=== PATIENT | male | born 1940 | race Caucasian/White ===

== ENCOUNTER 2017-04-27 09:05 | Inpatient (IN) | payer MEDICARE, BC ==
--- NOTE | 2017-04-27 17:07 | PCM.HP ---
H&P History of Present Illness - General Date of Service: 04/27/17 Admit Problem/Dx: Admission Diagnosis/Problem Admission Diagnosis/Problem Rehabilitation therapy Source of Information: Patient, Old Records History Limitations: Reports: No Limitations - History of Present Illness Initial Comments - Free Text/Narative: This is a 76-year-old male patient is transferred down from [facility] after having pleural effusions secondary to severe pulmonary hypertension. He was initially admitted late March discharge 04/06 and then was readmitted for shortness of breath. He went underwent thoracentesis. So now he is having problems with chronic pleural effusion and he has a permanent chest tube in which are draining periodically. Today he has no concerns. He has no shortness of breath. Occasional cough, no fevers, chills or leg swelling. - Related Data Allergies/Adverse Reactions: Allergies Allergy/AdvReac Type Severity Reaction Status Date / Time No Known Allergies Allergy Verified 04/27/17 16:11 Home Medications: Home Meds Carvedilol [Coreg] 3.125 mg PO BIDMEALS 04/27/17 [History] Digoxin [Digox] 62.5 mcg PO Q36H 04/27/17 [History] Ferrous Fumarate 324 mg PO BID 04/27/17 [History] Furosemide 80 mg PO BID 04/27/17 [History] Macitentan [Opsumit] 10 mg PO DAILY 04/27/17 [History] Sildenafil [Revatio] 20 mg PO TID 04/27/17 [History] Simvastatin [Zocor] 40 mg PO BEDTIME 04/27/17 [History] Warfarin [Coumadin] 3 mg PO DAILY 04/27/17 [History] glipiZIDE [Glipizide Xl] 10 mg PO DAILY 04/27/17 [History] metFORMIN [Glucophage] 1,000 mg PO BIDMEALS 04/27/17 [History] Past Medical History HEENT History: Reports: Cataract Cardiovascular History: Reports: Afib, Heart Failure, High Cholesterol, Hypertension Respiratory History: Reports: Other (See Below) Other Respiratory History: pulmonary hypertension Other Genitourinary History: CRF Endocrine/Metabolic History: Reports: Diabetes, Type II - Infectious Disease History Infectious Disease History: Reports: Chicken Pox - Past Surgical History HEENT Surgical History: Reports: Eye Surgery Respiratory Surgical History: Reports: Pleurodesis, Thoracentesis Endocrine Surgical History: Reports: None Social & Family History - Family History Family Medical History: Noncontributory - Tobacco Use Smoking Status *Q: Former Smoker Years of Tobacco use: 10 Used Tobacco, but Quit: Yes Month Tobacco Last Used: April Second Hand Smoke Exposure: No - Caffeine Use Caffeine Use: Reports: None - Recreational Drug Use Recreational Drug Use: No H&P Review of Systems - Review of Systems: Review Of Systems: See Below General: Reports: No Symptoms HEENT: Reports: No Symptoms Pulmonary: Reports: No Symptoms Cardiovascular: Reports: No Symptoms Gastrointestinal: Reports: No Symptoms Genitourinary: Reports: No Symptoms Musculoskeletal: Reports: No Symptoms Skin: Reports: No Symptoms Psychiatric: Reports: No Symptoms Neurological: Reports: No Symptoms Hematologic/Lymphatic: Reports: Easy Bruising Immunologic: Reports: No Symptoms Exam - Exam Exam: See Below - Vital Signs Vital Signs: Last Vital Signs Temp 97.9 F 04/27/17 12:48 Pulse 83 04/27/17 12:48 Resp 16 04/27/17 12:48 BP 117/59 L 04/27/17 12:48 Pulse Ox 95 04/27/17 13:47 Weight: 236 lb - Exam General: Alert, Oriented, Cooperative HEENT: PERRLA, Conjunctiva Clear, Hearing Intact, Mucosa Moist & [place], Posterior Pharynx Clear, TMs Clear Neck: Supple, Trachea Midline Lungs: Clear to Auscultation, Normal Respiratory Effort. No: Crackles, Rales, Rhonchi Cardiovascular: Regular Rhythm. No: Systolic Murmur, Diastolic Murmur GI/Abdominal Exam: Normal Bowel Sounds, Soft, Non-Tender, No Organomegaly, No Distention Back Exam: Normal Inspection, Full Range of Motion Extremities: Normal Inspection, Non-Tender, No Pedal Edema Skin: Warm, Dry, Intact Neurological: Normal Speech, Normal Tone Neuro Extensive - Mental Status: Alert, Oriented x3, Normal Mood/Affect, Normal Cognition, Memory Intact Psychiatric: Alert, Normal Affect, Normal Mood *Q Meaningful Use (ADM) - VTE *Q VTE Criteria *Q: - Stroke *Q Stroke Criteria *Q: - AMI *Q AMI Criteria *Q: - Problem List (1) Pleural effusion SNOMED Code(s): 44993865 ICD Code: J90 - PLEURAL EFFUSION, NOT ELSEWHERE CLASSIFIED Status: Acute Current Visit: Yes (2) COPD (chronic obstructive pulmonary disease) SNOMED Code(s): 78735924 ICD Code: J44.9 - CHRONIC OBSTRUCTIVE PULMONARY DISEASE, UNSPECIFIED Status : Acute Current Visit: Yes (3) Chronic atrial fibrillation SNOMED Code(s): 706014777 ICD Code: I48.2 - CHRONIC ATRIAL FIBRILLATION Status: Acute Current Visit : Yes (4) Pulmonary hypertension, moderate to severe SNOMED Code(s): 73086744 ICD Code: I27.20 - PULMONARY HYPERTENSION, UNSPECIFIED Status: Acute Current Visit: Yes (5) Diabetes SNOMED Code(s): 41866509 ICD Code: E11.9 - TYPE 2 DIABETES MELLITUS WITHOUT COMPLICATIONS Status: Acute Current Visit: Yes (6) Chronic kidney disease, stage III (moderate) SNOMED Code(s): 248077434 ICD Code: N18.3 - CHRONIC KIDNEY DISEASE, STAGE 3 (MODERATE) Status: Acute Current Visit: Yes (7) Hypertension SNOMED Code(s): 99754902 ICD Code: I10 - ESSENTIAL (PRIMARY) HYPERTENSION Status: Acute Current Visit: Yes (8) Sleep apnea SNOMED Code(s): 50473517 ICD Code: G47.30 - SLEEP APNEA, UNSPECIFIED Status: Acute Current Visit: Yes (9) Chronic congestive heart failure with left ventricular diastolic dysfunction SNOMED Code(s): 27271438 ICD Code: I50.32 - CHRONIC DIASTOLIC (CONGESTIVE) HEART FAILURE Status: Acute Current Visit: Yes Problem List Initiated/Reviewed/Updated: Yes Orders Last 24hrs: Active Orders 24 hr Category Date Time Status Admission Status [Patient Status] [ADT] Routine ADT 04/27/17 10:30 Active Activity as Tolerated [RC] .Routine Care 04/27/17 13:47 Active Oxygen Therapy [RC] .PRN Care 04/27/17 13:47 Active OT Evaluation and Treatment [CONS] Routine Cons 04/27/17 13:47 Active PT Evaluation and Treatment [CONS] Routine Cons 04/27/17 13:47 Active No Added Salt [DIET] Diet 04/27/17 Dinner Active INR,PT,PROTHROMBIN TIME [COAG] Routine Lab 04/30/17 06:00 Ordered Patient May [OM.PC] Click to Edit Oth 04/27/17 16:08 Ordered Wound Vac Management [OM.PC] Routine Oth 04/27/17 13:47 Ordered Resuscitation Status Routine Resus Stat 04/27/17 13:47 Ordered Assessment/Plan Comment:: Patient was admitted and continued on anticoagulation. They will drain is chest tubes periodically. Do teaching. Physical therapy, and occupational therapy Continue his regular medicines. Diabetic diet. Pharmacy to manage INR.
[2017-04-27] MEDS ORDERED: Warfarin 3 MG Tab PO SCH (17:30)
[2017-04-27] MEDS: metFORMIN 1,000 MG Tab PO SCH (17:59)
[2017-04-27] MEDS: Carvedilol 3.125 MG Tab PO SCH (17:59)
[2017-04-27] MEDS: Furosemide 80 MG Tab PO SCH (17:59)
[2017-04-27] MEDS: Ferrous Sulfate 325 MG Tab PO SCH (21:44)
[2017-04-27] MEDS: Sildenafil 20 MG Tab PO SCH (21:45)
[2017-04-27] MEDS: Simvastatin 40 MG Tab PO SCH (21:45)
[2017-04-28] MEDS: Sildenafil 20 MG Tab PO SCH ×3 (08:10→21:39)
[2017-04-28] MEDS: Ferrous Sulfate 325 MG Tab PO SCH ×2 (08:10→21:38)
[2017-04-28] MEDS: Furosemide 80 MG Tab PO SCH ×2 (08:10→16:39)
[2017-04-28] MEDS: metFORMIN 1,000 MG Tab PO SCH ×2 (08:14→17:21)
[2017-04-28] MEDS: glipiZIDE 10 MG Tab.ER PO SCH (08:15)
[2017-04-28] MEDS: Carvedilol 3.125 MG Tab PO SCH ×2 (08:15→17:20)
[2017-04-28] MEDS: MACITENTAN 10 MG PO SCH (08:16)
[2017-04-28] MEDS ORDERED: Warfarin Sliding Scale PO SCH (09:00)
[2017-04-28] MEDS ORDERED: Warfarin 5 MG Tab PO SCH (16:00)
[2017-04-28] MEDS: Digoxin 125 MCG Tab PO SCH (21:38)
[2017-04-28] MEDS: Simvastatin 40 MG Tab PO SCH (21:39)
[2017-04-29] MEDS: Sildenafil 20 MG Tab PO SCH ×3 (08:59→20:16)
[2017-04-29] MEDS: MACITENTAN 10 MG PO SCH (08:59)
[2017-04-29] MEDS: glipiZIDE 10 MG Tab.ER PO SCH (09:00)
[2017-04-29] MEDS: metFORMIN 1,000 MG Tab PO SCH ×2 (09:00→17:22)
[2017-04-29] MEDS: Carvedilol 3.125 MG Tab PO SCH ×2 (09:00→17:22)
[2017-04-29] MEDS: Ferrous Sulfate 325 MG Tab PO SCH ×2 (09:00→20:16)
[2017-04-29] MEDS: Furosemide 80 MG Tab PO SCH ×2 (09:01→14:12)
[2017-04-29] MEDS ORDERED: Warfarin 3 MG Tab PO SCH (16:00)
[2017-04-29] MEDS: Sulfamethoxazole/Trimethoprim 800-160 MG Tab PO SCH (20:16)
[2017-04-29] MEDS: Simvastatin 40 MG Tab PO SCH (20:16)
[2017-04-30] MEDS: metFORMIN 1,000 MG Tab PO SCH ×2 (09:02→18:26)
[2017-04-30] MEDS: Carvedilol 3.125 MG Tab PO SCH ×2 (09:02→18:27)
[2017-04-30] MEDS: Ferrous Sulfate 325 MG Tab PO SCH ×2 (09:03→20:06)
[2017-04-30] MEDS: glipiZIDE 10 MG Tab.ER PO SCH (09:03)
[2017-04-30] MEDS: Furosemide 80 MG Tab PO SCH ×2 (09:03→15:05)
[2017-04-30] MEDS: Digoxin 125 MCG Tab PO SCH (09:03)
[2017-04-30] MEDS: MACITENTAN 10 MG PO SCH (09:04)
[2017-04-30] MEDS: Sildenafil 20 MG Tab PO SCH ×3 (09:05→20:07)
[2017-04-30] MEDS: Sulfamethoxazole/Trimethoprim 800-160 MG Tab PO SCH ×2 (09:09→20:07)
[2017-04-30] MEDS: Warfarin 3 MG Tab PO SCH (15:38)
[2017-04-30] MEDS: Simvastatin 40 MG Tab PO SCH (20:06)
[2017-05-01] MEDS: Carvedilol 3.125 MG Tab PO SCH ×2 (08:32→18:39)
[2017-05-01] MEDS: metFORMIN 1,000 MG Tab PO SCH ×2 (08:33→18:38)
[2017-05-01] MEDS: glipiZIDE 10 MG Tab.ER PO SCH (08:33)
[2017-05-01] MEDS: Furosemide 80 MG Tab PO SCH ×2 (08:33→14:08)
[2017-05-01] MEDS: MACITENTAN 10 MG PO SCH (08:35)
[2017-05-01] MEDS: Sildenafil 20 MG Tab PO SCH ×3 (08:36→20:46)
[2017-05-01] MEDS: Ciprofloxacin 250 MG Tab PO SCH ×2 (08:40→20:00)
[2017-05-01] MEDS: Ferrous Sulfate 325 MG Tab PO SCH ×2 (10:25→20:44)
[2017-05-01] MEDS: Warfarin 3 MG Tab PO SCH (16:25)
[2017-05-01] MEDS: Simvastatin 40 MG Tab PO SCH (20:44)
[2017-05-01] MEDS: Digoxin 125 MCG Tab PO SCH (20:46)
[2017-05-02] MEDS: Sildenafil 20 MG Tab PO SCH ×3 (07:50→21:18)
[2017-05-02] MEDS: Ferrous Sulfate 325 MG Tab PO SCH ×2 (07:50→21:18)
[2017-05-02] MEDS: glipiZIDE 10 MG Tab.ER PO SCH (07:50)
[2017-05-02] MEDS: Ciprofloxacin 250 MG Tab PO SCH ×2 (07:50→21:18)
[2017-05-02] MEDS: Carvedilol 3.125 MG Tab PO SCH ×2 (07:50→18:23)
[2017-05-02] MEDS: MACITENTAN 10 MG PO SCH (07:50)
[2017-05-02] MEDS: metFORMIN 1,000 MG Tab PO SCH ×2 (07:51→18:23)
[2017-05-02] MEDS: Furosemide 80 MG Tab PO SCH ×2 (07:51→13:50)
[2017-05-02] MEDS: Warfarin 3 MG Tab PO SCH (16:03)
[2017-05-02] MEDS: Simvastatin 40 MG Tab PO SCH (21:19)
[2017-05-03] MEDS: Ciprofloxacin 250 MG Tab PO SCH ×2 (08:42→19:46)
[2017-05-03] MEDS: Carvedilol 3.125 MG Tab PO SCH ×2 (08:43→17:36)
[2017-05-03] MEDS: Furosemide 80 MG Tab PO SCH (08:43)
[2017-05-03] MEDS: metFORMIN 1,000 MG Tab PO SCH ×2 (08:43→17:39)
[2017-05-03] MEDS: Ferrous Sulfate 325 MG Tab PO SCH ×2 (09:40→20:15)
[2017-05-03] MEDS: Sildenafil 20 MG Tab PO SCH ×3 (09:40→20:15)
[2017-05-03] MEDS: glipiZIDE 10 MG Tab.ER PO SCH (09:40)
[2017-05-03] MEDS: MACITENTAN 10 MG PO SCH (09:40)
--- NOTE | 2017-05-03 09:42 | PCM.PN ---
- General Info Date of Service: 05/03/17 Admission Dx/Problem (Free Text): Patient without complaints. Breathing about the same. The leg swelling. 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 New orders were placed. He says he is working with PT. - Patient Data Vitals - Most Recent: Last Vital Signs Temp 97.5 F 05/03/17 06:21 Pulse 84 05/03/17 06:21 Resp 20 05/03/17 06:21 BP 111/64 05/03/17 06:21 Pulse Ox 94 L 05/03/17 06:21 Weight - Most Recent: 236 lb Lab Results Last 24 Hours: Laboratory Results - last 24 hr 05/03/17 Range/Units 06:40 PT 27.9 H (8.7-11.1) INR 2.70 H (0.89-1.13) Med Orders - Current: Current Medications Carvedilol (Coreg) 3.125 mg PO BIDMEALS [facility] Last Admin: 05/03/17 08:43 Dose: 3.125 mg Ciprofloxacin (Ciprofloxacin Hcl) 250 mg PO 0800,2000 [facility] Last Admin: 05/03/17 08:42 Dose: 250 mg Ferrous Sulfate (Ferrous Sulfate) 325 mg PO BID [facility] Last Admin: 05/02/17 21:18 Dose: 325 mg Furosemide (Lasix) 80 mg PO DAILY@0800 [facility] Last Admin: 05/03/17 08:43 Dose: 80 mg Furosemide (Lasix) 40 mg PO DAILY@1400 [facility] Glipizide (Glucotrol Xl) 10 mg PO DAILY [facility] Last Admin: 05/02/17 07:50 Dose: 10 mg Metformin HCl (Glucophage) 1,000 mg PO BIDMEALS [facility] Last Admin: 05/03/17 08:43 Dose: 1,000 mg Macitentan [Opsumit] (10 Mg *Ptom) 10 mg PO DAILY [facility] Last Admin: 05/02/17 07:50 Dose: 10 mg Sildenafil Citrate (Revatio) 20 mg PO TID [facility] Last Admin: 05/02/17 21:18 Dose: 20 mg Simvastatin (Zocor) 40 mg PO BEDTIME [facility] Last Admin: 05/02/17 21:19 Dose: 40 mg Warfarin Sodium (Coumadin Sliding Scale) 1 each PO DAILY [facility] Warfarin Sodium (Coumadin) 3 mg PO 1600 [facility] Last Admin: 05/02/17 16:03 Dose: 3 mg Discontinued Medications Digoxin (Lanoxin) 62.5 mcg PO Q36H [facility] Last Admin: 05/01/17 20:46 Dose: 62.5 mcg Furosemide (Lasix) 80 mg PO BIDDIURETIC [facility] Last Admin: 05/02/17 13:50 Dose: 80 mg Trimethoprim/Sulfamethoxazole (Septra Ds) 1 tab PO BID [facility] Last Admin: 04/30/17 20:07 Dose: 1 tab Warfarin Sodium (Coumadin) 3 mg PO 1600 [facility] Stop: 04/27/17 20:30 Last Admin: 04/27/17 17:58 Dose: 3 mg Warfarin Sodium (Coumadin) 5 mg PO 1600 [facility] Stop: 04/28/17 20:30 Last Admin: 04/28/17 16:38 Dose: 5 mg Warfarin Sodium (Coumadin) 3 mg PO 1600 [facility] Stop: 04/29/17 16:01 Last Admin: 04/29/17 16:38 Dose: Not Given Warfarin Sodium (Coumadin) 3 mg PO 1600 [facility] Stop: 04/29/17 16:31 Last Admin: 04/29/17 16:36 Dose: 3 mg - Exam General: Alert, Oriented, Cooperative Lungs: Normal Respiratory Effort, Decreased Breath Sounds Cardiovascular: Regular Rate, Regular Rhythm, No Murmurs Extremities: Pedal Edema - Problem List & Annotations (1) Pleural effusion SNOMED Code(s): 42637524 Code(s): J90 - PLEURAL EFFUSION, NOT ELSEWHERE CLASSIFIED Status: Acute Current Visit: Yes (2) COPD (chronic obstructive pulmonary disease) SNOMED Code(s): 48421776 Code(s): J44.9 - CHRONIC OBSTRUCTIVE PULMONARY DISEASE, UNSPECIFIED Status : Acute Current Visit: Yes (3) Chronic atrial fibrillation SNOMED Code(s): 071075398 Code(s): I48.2 - CHRONIC ATRIAL FIBRILLATION Status: Acute Current Visit : Yes (4) Pulmonary hypertension, moderate to severe SNOMED Code(s): 36535590 Code(s): I27.20 - PULMONARY HYPERTENSION, UNSPECIFIED Status: Acute Current Visit: Yes (5) Diabetes SNOMED Code(s): 02806797 Code(s): E11.9 - TYPE 2 DIABETES MELLITUS WITHOUT COMPLICATIONS Status: Acute Current Visit: Yes (6) Chronic kidney disease, stage III (moderate) SNOMED Code(s): 935906674 Code(s): N18.3 - CHRONIC KIDNEY DISEASE, STAGE 3 (MODERATE) Status: Acute Current Visit: Yes (7) Hypertension SNOMED Code(s): 36560275 Code(s): I10 - ESSENTIAL (PRIMARY) HYPERTENSION Status: Acute Current Visit: Yes (8) Sleep apnea SNOMED Code(s): 74468278 Code(s): G47.30 - SLEEP APNEA, UNSPECIFIED Status: Acute Current Visit: Yes (9) Chronic congestive heart failure with left ventricular diastolic dysfunction SNOMED Code(s): 94391114 Code(s): I50.32 - CHRONIC DIASTOLIC (CONGESTIVE) HEART FAILURE Status: Acute Current Visit: Yes - Problem List Review Problem List Initiated/Reviewed/Updated: Yes - My Orders Last 24 Hours: My Active Orders 05/03/17 08:00 Furosemide [Lasix] 80 mg PO DAILY@0800 05/03/17 14:00 Furosemide [Lasix] 40 mg PO DAILY@1400 05/04/17 09:11 INR,PT,PROTHROMBIN TIME [COAG] DAILY - Plan Plan:: Continue current care. Home next week on hospice.
[2017-05-03] MEDS: Furosemide 40 MG Tab PO SCH (14:49)
[2017-05-03] MEDS ORDERED: 50% Dextrose in Water 50 ML Syringe IVPUSH ONE (15:55)
[2017-05-03] MEDS ORDERED: Sodium Chloride 0.9% 10 ML Syringe FLUSH PRN (15:55)
[2017-05-03] MEDS ORDERED: Dextrose 5%-0.45% NaCl 1,000 ML IV SCH ×2 (16:00→16:15)
[2017-05-03] MEDS: Warfarin 3 MG Tab PO SCH (16:24)
[2017-05-03] MEDS: Simvastatin 40 MG Tab PO SCH (20:15)
[2017-05-03] MEDS ORDERED: Glucagon,Human Recombinant 1 MG Vial IM ONE (21:26)
[2017-05-04] MEDS: Ciprofloxacin 250 MG Tab PO SCH ×2 (08:37→20:32)
[2017-05-04] MEDS: Carvedilol 3.125 MG Tab PO SCH ×2 (08:37→17:40)
[2017-05-04] MEDS: glipiZIDE 10 MG Tab.ER PO SCH (08:38)
[2017-05-04] MEDS: metFORMIN 1,000 MG Tab PO SCH (08:38)
[2017-05-04] MEDS: MACITENTAN 10 MG PO SCH (08:38)
[2017-05-04] MEDS: Furosemide 80 MG Tab PO SCH (08:39)
[2017-05-04] MEDS: Sildenafil 20 MG Tab PO SCH ×3 (08:39→20:32)
[2017-05-04] MEDS: Ferrous Sulfate 325 MG Tab PO SCH ×2 (09:20→20:32)
[2017-05-04] MEDS: Dextrose 5%-0.45% NaCl 1,000 ML IV SCH (10:58)
[2017-05-04] MEDS ORDERED: Warfarin 3 MG Tab PO SCH (16:00)
[2017-05-04] MEDS: Furosemide 40 MG Tab PO SCH (16:35)
[2017-05-04] MEDS: Simvastatin 40 MG Tab PO SCH (20:32)
[2017-05-05] MEDS: Carvedilol 3.125 MG Tab PO SCH ×2 (08:22→18:55)
[2017-05-05] MEDS: Ciprofloxacin 250 MG Tab PO SCH ×2 (08:22→20:14)
[2017-05-05] MEDS: Sildenafil 20 MG Tab PO SCH ×3 (08:23→21:58)
[2017-05-05] MEDS: Ferrous Sulfate 325 MG Tab PO SCH ×2 (08:23→21:58)
[2017-05-05] MEDS: MACITENTAN 10 MG PO SCH (08:23)
[2017-05-05] MEDS: Furosemide 80 MG Tab PO SCH (08:23)
[2017-05-05] MEDS: Dextrose 5%-0.45% NaCl 1,000 ML IV SCH (12:18)
[2017-05-05] MEDS: Furosemide 40 MG Tab PO SCH (14:10)
[2017-05-05] MEDS: Warfarin 3 MG Tab PO SCH (15:48)
[2017-05-05] MEDS: Simvastatin 40 MG Tab PO SCH (21:58)
[2017-05-06] MEDS: Furosemide 80 MG Tab PO SCH (08:25)
[2017-05-06] MEDS: Carvedilol 3.125 MG Tab PO SCH ×2 (08:25→17:29)
[2017-05-06] MEDS: Ciprofloxacin 250 MG Tab PO SCH ×2 (08:25→21:00)
[2017-05-06] MEDS: MACITENTAN 10 MG PO SCH (08:26)
[2017-05-06] MEDS: Ferrous Sulfate 325 MG Tab PO SCH ×2 (08:26→21:06)
[2017-05-06] MEDS: Sildenafil 20 MG Tab PO SCH ×3 (08:26→21:07)
[2017-05-06] MEDS: Furosemide 40 MG Tab PO SCH (13:35)
[2017-05-06] MEDS: Warfarin 3 MG Tab PO SCH (16:17)
[2017-05-06] MEDS: Simvastatin 40 MG Tab PO SCH (21:07)
[2017-05-07] MEDS: Sildenafil 20 MG Tab PO SCH ×3 (08:13→20:44)
[2017-05-07] MEDS: Carvedilol 3.125 MG Tab PO SCH ×2 (08:13→17:03)
[2017-05-07] MEDS: Ciprofloxacin 250 MG Tab PO SCH ×2 (08:13→19:55)
[2017-05-07] MEDS: Ferrous Sulfate 325 MG Tab PO SCH ×2 (08:13→20:44)
[2017-05-07] MEDS: Furosemide 80 MG Tab PO SCH (08:13)
[2017-05-07] MEDS: MACITENTAN 10 MG PO SCH (08:14)
[2017-05-07] MEDS: Furosemide 40 MG Tab PO SCH (14:22)
[2017-05-07] MEDS: Warfarin 3 MG Tab PO SCH (17:03)
[2017-05-07] MEDS: Simvastatin 40 MG Tab PO SCH (20:44)
[2017-05-08] MEDS: Ciprofloxacin 250 MG Tab PO SCH (09:06)
[2017-05-08] MEDS: Carvedilol 3.125 MG Tab PO SCH ×2 (09:06→18:15)
[2017-05-08] MEDS: Ferrous Sulfate 325 MG Tab PO SCH ×2 (09:07→20:18)
[2017-05-08] MEDS: Furosemide 80 MG Tab PO SCH (09:07)
[2017-05-08] MEDS: MACITENTAN 10 MG PO SCH (09:08)
[2017-05-08] MEDS: Sildenafil 20 MG Tab PO SCH ×3 (09:09→20:18)
[2017-05-08] MEDS: Furosemide 40 MG Tab PO SCH (13:57)
[2017-05-08] MEDS: Warfarin 3 MG Tab PO SCH (15:40)
[2017-05-08] MEDS: Simvastatin 40 MG Tab PO SCH (20:18)
[2017-05-09] MEDS: Carvedilol 3.125 MG Tab PO SCH ×2 (08:04→19:07)
[2017-05-09] MEDS: Furosemide 80 MG Tab PO SCH (08:04)
[2017-05-09] MEDS: Ferrous Sulfate 325 MG Tab PO SCH ×2 (08:04→21:05)
[2017-05-09] MEDS: MACITENTAN 10 MG PO SCH (08:04)
[2017-05-09] MEDS: Sildenafil 20 MG Tab PO SCH ×3 (08:05→21:05)
[2017-05-09] MEDS: Furosemide 40 MG Tab PO SCH (13:13)
[2017-05-09] MEDS ORDERED: Warfarin 3 MG Tab PO SCH (16:00)
[2017-05-09] MEDS: Simvastatin 40 MG Tab PO SCH (21:05)
[2017-05-10] MEDS: Furosemide 80 MG Tab PO SCH (08:00)
[2017-05-10] MEDS: MACITENTAN 10 MG PO SCH (08:00)
[2017-05-10] MEDS: Ferrous Sulfate 325 MG Tab PO SCH (08:00)
[2017-05-10] MEDS: Carvedilol 3.125 MG Tab PO SCH (08:00)
[2017-05-10] MEDS: Sildenafil 20 MG Tab PO SCH ×2 (08:01→14:34)
[2017-05-10] MEDS: Furosemide 40 MG Tab PO SCH (14:34)
[2017-05-10] MEDS ORDERED: Warfarin 3 MG Tab PO SCH (16:00)
--- NOTE | 2017-05-11 09:13 | DISCH ---
DISCHARGE DATE: 05/10/2017 REASON FOR ADMISSION: 1. Physical deconditioning. 2. Pleural effusion. 3. Chronic renal failure. 4. Type 2 diabetes. 5. Severe pulmonary hypertension. 6. Chronic obstructive pulmonary disease. 7. Atrial fibrillation and sleep apnea. 8. Congestive heart failure. CONSULTATIONS: None. BRIEF HISTORY: This is a 77-year-old male who was admitted from [facility] where he had been seen for pleural effusion, chronic, and this was treated with a chest tube. He was admitted for strengthening and rehab. During his hospital stay, he had episodes of hypoglycemia necessitating the discontinuation of insulin and glipizide and metformin. His Lasix was also decreased to 80 mg in the morning and 40 mg in the afternoon rather than 80 mg twice a day. Digoxin was discontinued altogether. He is ready to go home today on 05/10/2017 with the following medications: 1. Ferrous sulfate 325 mg b.i.d. 2. Furosemide 80 mg in the morning and 40 mg in the afternoon. 3. Macitentan 10 mg daily. 4. Sildenafil 20 mg t.i.d. 5. Zocor 40 mg at bedtime. 6. Coumadin 6 mg on and 3 mg the rest of the days. 7. Also continue with metformin 1000 mg b.i.d. Please note that digoxin and glipizide have been discontinued. FOLLOWUP: Will see PCP on Sunday and also have an INR drawn. The patient will go home with hospice care. /[id number] MIKI/ELIZABETH
== END 2017-05-10 14:10 | disposition hospice, home (50) | DRG 948 ==
LOC: FB.MS 12:32
PROVIDERS: ADMIT Family Medicine; ATTEND Family Medicine
DX: R53.1 Weakness (principal); J90 Pleural effusion, not elsewhere classified; I13.0 Hypertensive heart and chronic kidney disease with heart failure and stage 1 through stage 4 chronic kidney disease, or unspecified chronic kidney disease; Z66 Do not resuscitate; J44.9 Chronic obstructive pulmonary disease, unspecified; I27.20 Pulmonary hypertension, unspecified; Z87.891 Personal history of nicotine dependence; E11.22 Type 2 diabetes mellitus with diabetic chronic kidney disease; N18.3 Chronic kidney disease, stage 3 (moderate); Z79.84 Long term (current) use of oral hypoglycemic drugs; I48.2 Chronic atrial fibrillation; Z79.01 Long term (current) use of anticoagulants; E78.00 Pure hypercholesterolemia, unspecified; G47.30 Sleep apnea, unspecified; E11.649 Type 2 diabetes mellitus with hypoglycemia without coma
CPT/HCPCS: 36415; 80048; 81001; 82962; 85025; 85610; 87086; 87088; 87186; 97110-GO; 97110-GP; 97116-GP; 97161-GP; 97165-GO; 97530-GO-KX; 97530-GP; A9270-GY; J1610; J7050

== ENCOUNTER 2017-08-26 07:07 | Inpatient (IN) | payer BC, MEDICARE, OTHER ==
[2017-08-26] MEDS ORDERED: Morphine Oral Concentrate 20 MG/ML 30 ML Bottle PO PRN (09:17)
--- NOTE | 2017-08-26 10:37 | PCM.HP ---
H&P History of Present Illness - General Date of Service: 08/26/17 Admit Problem/Dx: Admission Diagnosis/Problem Admission Diagnosis/Problem CHF, Congestive heart failure Source of Information: Other (His hospice nurse) History Limitations: Reports: Altered Mental Status, Respiratory Distress - History of Present Illness Initial Comments - Free Text/Narative: Patient 77-year-old male with severe end-stage COPD, CHF atrial fibrillation having been on hospice now roughly 5 months. Has been staying at home with home hospice with his family providing cares 24 hours. He is decompensated to the point that he is now requiring 5.5 L of oxygen with sats in the mid 80s along with breathing. Mentation and functional decline. He is admitted under hospice respite care for support and observation Duration of Symptoms: Reports: Waxing/Waning denies any pain Pain Score (Numeric/FACES): 0 - Related Data Allergies/Adverse Reactions: Allergies Allergy/AdvReac Type Severity Reaction Status Date / Time No Known Allergies Allergy Verified 08/26/17 09:00 Home Medications: Home Meds Carvedilol [Coreg] 3.125 mg PO BIDMEALS 04/27/17 [History] Macitentan [Opsumit] 10 mg PO DAILY 04/27/17 [History] Sildenafil [Revatio] 20 mg PO TID 04/27/17 [History] Furosemide [Lasix] 40 mg PO DAILY@1400 #60 tablet 05/10/17 [Rx] Furosemide [Lasix] 80 mg PO DAILY@0800 #0 tablet 05/10/17 [Rx] Morphine [Morphine 20 MG/ML Soln] 5 mg PO .Q30MIN PRN 08/26/17 [History] Scopolamine [Transderm-Scop] 1 patch TD Q3D 08/26/17 [History] Warfarin [Coumadin] 1 mg PO DAILY 08/26/17 [History] glipiZIDE [Glipizide Xl] 10 mg PO DAILY 08/26/17 [History] Past Medical History HEENT History: Reports: Cataract Cardiovascular History: Reports: Afib, Heart Failure, High Cholesterol, Hypertension Respiratory History: Reports: Other (See Below) Other Respiratory History: pulmonary hypertension Genitourinary History: Reports: Urinary Incontinence Other Genitourinary History: CRF Endocrine/Metabolic History: Reports: Diabetes, Type II Dermatologic History: Reports: Other (See Below) Other Dermatologic History: weeping fluid to pt bilateral legs - Infectious Disease History Infectious Disease History: Reports: Chicken Pox - Past Surgical History HEENT Surgical History: Reports: Eye Surgery Cardiovascular Surgical History: Reports: None Respiratory Surgical History: Reports: Pleurodesis, Thoracentesis Male Surgical History: Reports: None Endocrine Surgical History: Reports: None Dermatological Surgical History: Reports: None Social & Family History - Family History Family Medical History: Noncontributory - Tobacco Use Smoking Status *Q: Former Smoker Years of Tobacco use: 10 Used Tobacco, but Quit: Yes Month Tobacco Last Used: 36 years ago Tobacco Use Comment: quit smoking 35 years ago Second Hand Smoke Exposure: No - Caffeine Use Caffeine Use: Reports: Coffee, Soda Other Caffeine Use: 2 cups a day; occasional drinker of Dr. Anthony - Recreational Drug Use Recreational Drug Use: No H&P Review of Systems - Review of Systems: Review Of Systems: ROS reveals no pertinent complaints other than HPI. Exam - Exam Exam: See Below - Vital Signs Vital Signs: Last Vital Signs Temp Pulse 74 08/26/17 07:29 Resp 24 H 08/26/17 07:29 BP 94/47 L 08/26/17 07:29 Pulse Ox 94 L 08/26/17 07:30 Weight: 114.169 kg - Exam Quality Assessment: Supplemental Oxygen General: Moderate Distress, Lethargic Skin: Other (Central peripheral cyanosis noted) Physical Exam Comments:: numerous family at bedside. *Q Meaningful Use (ADM) - VTE *Q VTE Criteria *Q: - Stroke *Q Stroke Criteria *Q: - AMI *Q AMI Criteria *Q: - Problem List (1) Hospice care patient SNOMED Code(s): 207050931 ICD Code: Z51.5 - ENCOUNTER FOR PALLIATIVE CARE Status: Acute (2) Pulmonary hypertension, moderate to severe SNOMED Code(s): 38459222 ICD Code: I27.20 - PULMONARY HYPERTENSION, UNSPECIFIED Status: Acute (3) Chronic respiratory failure with hypoxia, on home oxygen therapy SNOMED Code(s): 374303607 ICD Code: J96.11 - CHRONIC RESPIRATORY FAILURE WITH HYPOXIA; Z99.81 - DEPENDENCE ON SUPPLEMENTAL OXYGEN Status: Acute (4) Pleural effusion SNOMED Code(s): 13186324 ICD Code: J90 - PLEURAL EFFUSION, NOT ELSEWHERE CLASSIFIED Status: Acute (5) DNI (do not intubate) SNOMED Code(s): 056727131 ICD Code: Z78.9 - OTHER SPECIFIED HEALTH STATUS Status: Acute (6) DNR (do not resuscitate) Status: Acute (7) COPD (chronic obstructive pulmonary disease) SNOMED Code(s): 14670136 ICD Code: J44.9 - CHRONIC OBSTRUCTIVE PULMONARY DISEASE, UNSPECIFIED Status : Acute (8) Chronic atrial fibrillation SNOMED Code(s): 935477373 ICD Code: I48.2 - CHRONIC ATRIAL FIBRILLATION Status: Acute (9) Chronic congestive heart failure with left ventricular diastolic dysfunction SNOMED Code(s): 06616565 ICD Code: I50.32 - CHRONIC DIASTOLIC (CONGESTIVE) HEART FAILURE Status: Acute (10) Chronic kidney disease, stage III (moderate) SNOMED Code(s): 967552718 ICD Code: N18.3 - CHRONIC KIDNEY DISEASE, STAGE 3 (MODERATE) Status: Acute (11) Diabetes SNOMED Code(s): 81150449 ICD Code: E11.9 - TYPE 2 DIABETES MELLITUS WITHOUT COMPLICATIONS Status: Acute (12) Hypertension SNOMED Code(s): 04697190 ICD Code: I10 - ESSENTIAL (PRIMARY) HYPERTENSION Status: Acute (13) Sleep apnea SNOMED Code(s): 79499069 ICD Code: G47.30 - SLEEP APNEA, UNSPECIFIED Status: Acute Problem List Initiated/Reviewed/Updated: Yes Orders Last 24hrs: Active Orders 24 hr Category Date Time Status Patient Status [ADT] Routine ADT 08/26/17 07:10 Active Insert Castro Catheter [Insert Urinary Catheter] [OM.PC] Care 08/26/17 09:00 Ordered Per Unit Routine Oxygen Therapy Adult [Oxygen Therapy] [RC] ASDIRECTED Care 08/26/17 09:41 Active INR,PT,PROTHROMBIN TIME [COAG] Routine Lab 08/27/17 06:00 Ordered Carvedilol [Coreg] Med 08/26/17 18:00 Active 3.125 mg PO BIDMEALS Furosemide [Lasix] Med 08/26/17 14:00 Ordered 40 mg PO DAILY@1400 Furosemide [Lasix] Med 08/27/17 08:00 Ordered 80 mg PO DAILY@0800 Macitentan [Opsumit] Med 08/26/17 09:30 Ordered 10 mg PO DAILY Morphine [Morphine 20 MG/ML Soln] Med 08/26/17 09:25 Ordered 5 mg PO .Q30MIN PRN Patient's Own Medication [Ptom] Med 08/27/17 09:00 Pending 0 each PO DAILY Remove Patch Med 08/29/17 08:00 Active 1 ea TRDERM Q72H Scopolamine [Transderm-Scop] Med 08/29/17 08:00 Ordered DOSE mg TRDERM Q3D Sildenafil [Revatio] Med 08/26/17 14:00 Ordered 20 mg PO TID Warfarin [Coumadin] Med 08/26/17 16:00 Once 1 mg PO ONETIME ONE glipiZIDE [Glucotrol XL] Med 08/26/17 09:30 Ordered 10 mg PO DAILY Resuscitation Status Routine Resus Stat 08/26/17 08:57 Ordered Medication Orders Carvedilol (Coreg) 3.125 mg PO BIDMEALS [facility] Furosemide (Lasix) 80 mg PO DAILY@0800 [facility] Furosemide (Lasix) 40 mg PO DAILY@1400 [facility] Glipizide (Glucotrol Xl) 10 mg PO DAILY [facility] Miscellaneous Information (Remove Patch) 1 ea TRDERM Q72H JEAN Morphine Sulfate (Morphine 20 Mg/Ml Soln) 5 mg PO .Q30MIN PRN PRN Reason: Pain Non-Formulary Medication (Macitentan [Opsumit]) 10 mg PO DAILY JEAN Opsumit*Pt Own Med* 0 each PO DAILY [facility] Scopolamine (Transderm-Scop) mg TRDERM Q3D [facility]AN Sildenafil Citrate (Revatio) 20 mg PO TID [facility] Warfarin Sodium (Coumadin) 1 mg PO ONETIME ONE Stop: 08/26/17 16:01 Assessment/Plan Comment:: Has hospice nurse will take care of all knee and orders. I will certainly be available for any concerns. Given his current state I do not anticipate him to survive over the next 24 hours. Patient and family are aware of this. We'll keep him comfortable. Per his wishes he does not want procedures, labs, other evaluations or hospitalization.
[2017-08-26] MEDS ORDERED: GLIPIZIDE 10 MG PO SCH (11:45)
[2017-08-26] MEDS ORDERED: OPSUMIT 10 MG PO SCH ×2 (11:45)
[2017-08-26] MEDS ORDERED: Furosemide 40 MG Tab PO SCH (12:00)
[2017-08-26] MEDS: Carvedilol 3.125 MG Tab **OWN MED PO SCH ×2 (12:06→18:27)
[2017-08-26] MEDS ORDERED: FUROSEMIDE 80 MG PO SCH (14:00)
[2017-08-26] MEDS ORDERED: Sildenafil 20 MG Tab PO SCH (14:00)
[2017-08-26] MEDS: SILDENAFIL 20 MG PO SCH ×2 (14:03→20:23)
[2017-08-26] MEDS: MORPHINE 20 MG/ML PO PRN ×2 (15:08→18:57)
[2017-08-26] MEDS ORDERED: WARFARIN 1 MG PO ONE (16:00)
[2017-08-26] MEDS ORDERED: Carvedilol 3.125 MG Tab PO SCH ×2 (18:00→21:00)
[2017-08-27] MEDS ORDERED: FUROSEMIDE 80 MG PO SCH (08:00)
[2017-08-27] MEDS ORDERED: Furosemide 80 MG Tab PO SCH (09:00)
[2017-08-29] MEDS ORDERED: Scopolamine 1.5 MG Transdermal Patch TRDERM SCH (08:00)
[2017-08-29] MEDS ORDERED: Remove Patch*SCOPOLAMINE TRDERM SCH ×2 (08:00→09:00)
[2017-08-29] MEDS ORDERED: Scopolamine 1 MG Transdermal Patch TD SCH (09:00)
== END 2017-08-26 21:35 | disposition expired | DRG 951 ==
LOC: FB.MS 07:07
PROVIDERS: ADMIT Family Medicine; ATTEND Family Medicine
DX: Z75.5 Holiday relief care (principal); I13.0 Hypertensive heart and chronic kidney disease with heart failure and stage 1 through stage 4 chronic kidney disease, or unspecified chronic kidney disease; I50.32 Chronic diastolic (congestive) heart failure; J96.11 Chronic respiratory failure with hypoxia; Z51.5 Encounter for palliative care; Z66 Do not resuscitate; N18.3 Chronic kidney disease, stage 3 (moderate); E11.22 Type 2 diabetes mellitus with diabetic chronic kidney disease; Z79.84 Long term (current) use of oral hypoglycemic drugs; Z87.891 Personal history of nicotine dependence; I48.2 Chronic atrial fibrillation; Z79.01 Long term (current) use of anticoagulants; I27.20 Pulmonary hypertension, unspecified; Z99.81 Dependence on supplemental oxygen; G47.30 Sleep apnea, unspecified; E78.00 Pure hypercholesterolemia, unspecified
CPT/HCPCS: A9270-GY